=== PATIENT | female | born 1985 | race Caucasian/White ===

== ENCOUNTER 2024-05-05 09:41 | Emergency (ER) | payer MEDICAID ==
[~2024-05-05] VITALS: Ht 154.9 cm; Wt 72.8 kg
[2024-05-05 11:05] VITALS: BP 148/86; PULSE 88; RESP 20; TEMP 98.8; O2SAT 99
== END 2024-05-05 11:05 | disposition home or self-care (01) ==
LOC: ER 09:41
DX: Z00.00 Encounter for general adult medical examination without abnormal findings (principal)
CPT/HCPCS: 99281

== ENCOUNTER 2024-06-09 09:59 | Emergency (ER) | payer MEDICAID ==
[~2024-06-09] VITALS: Ht 154.9 cm; Wt 67.4 kg
[2024-06-09 10:04] VITALS: BP 104/61; PULSE 64; RESP 15; O2SAT 98
[2024-06-09] MEDS ORDERED: TRIA15CR61 TOP (10:38)
[2024-06-09] MEDS ORDERED: CLOT30CR19 TOP (10:38)
[2024-06-09 10:55] VITALS: TEMP 98.4
== END 2024-06-09 10:57 | disposition home or self-care (01) ==
LOC: ER 09:59
DX: B35.3 Tinea pedis (principal)
CPT/HCPCS: 99283